=== PATIENT | male | born 1980 | race Two or more races ===

== ENCOUNTER 2017-08-15 08:23 | Emergency (ER) | payer SELFPAY ==
[~2017-08-15] VITALS: Ht 165.1 cm; Wt 77.1 kg
[2017-08-15] MEDS ORDERED: Sodium Chloride 500ML 500 ML IV ONE (08:24)
[2017-08-15] MEDS ORDERED: levETIRAcetam 500mg/NS100ml 100 ML IVPB ONE (08:30)
[2017-08-15] MEDS ORDERED: LORazepam Inj 2mg/ml 1ml IV ONE (08:30)
[2017-08-15 08:37] VITALS: BP 136/86
[2017-08-15 08:50] LABS: HEMOGLOBIN 15.9 G/DL (14.2-18.0); MEAN CORPUSCULAR VOLUME 93 FL (80-99); PLATELET COUNT 404 K/UL (150-450); RED BLOOD COUNT 5.06 M/UL (4.70-6.10); RED CELL DISTRIBUTION WIDTH 12.2 % (11.6-14.8); WHITE BLOOD COUNT 18.6 K/UL (4.8-10.8)
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
[2017-08-15 09:00] LABS: ANION GAP 15 mmol/L (5-15); BLOOD UREA NITROGEN 11 mg/dL (7-18); CARBON DIOXIDE 21 MMOL/L (21-32); CHLORIDE 101 MMOL/L (98-107); CREATININE 1.5 MG/DL (0.55-1.30); POTASSIUM 4.3 MMOL/L (3.5-5.1); SODIUM 136 MMOL/L (136-145)
[2017-08-15 09:06] LABS: ALANINE AMINOTRANSFERASE 43 U/L (12-78); ALBUMIN 3.7 G/DL (3.4-5.0); ALBUMIN/GLOBULIN RATIO 0.8 (1.0-2.7); ALKALINE PHOSPHATASE 125 U/L (46-116); ASPARTATE AMINO TRANSFERASE 26 U/L (15-37); BILIRUBIN,TOTAL 0.5 MG/DL (0.2-1.0); CREATINE KINASE 517 U/L (26-308)
--- NOTE | 2017-08-15 09:12 | Diagnostic Imaging Report ---
Indications: Seizure Technique: Spiral acquisitions obtained through the brain. Angled axial and coronal 5 x 5 mm slices were reconstructed. Total dose length product 1383.12 mGycm. CTDI vol(s) 70.38 mGy. Dose reduction achieved using automated exposure control Comparison: None. Findings: There is a right frontotemporal parietal craniotomy/craniectomy defect. There is underlying parasagittal frontal encephalomalacia. This results in 2. Dilatation of the frontal horn right lateral ventricle. No acute intracranial hemorrhage or edema. No mass effect or midline shift. Otherwise normal llanes-white differentiation. There is minimal sphenoid sinus disease. The mastoids are clear. The visualized portions of the orbits and optic globes are intact. Impression: Evidence of prior right convexity craniotomy/craniectomy. 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 Correlate with clinical/surgical history No acute intracranial bleed or mass effect Consider contrast MRI for more sensitive and specific evaluation of stated clinical history of seizure disorder, as clinically indicated The CT scanner at [facility] is accredited by the [employer] and the scans are performed using protocols designed to limit radiation exposure to as low as reasonably achievable to attain images of sufficient resolution adequate for diagnostic evaluation.
[2017-08-15 10:09] VITALS: BP 119/85
[2017-08-15] MEDS ORDERED: KEPPRA500 MG ORAL (10:44)
[2017-08-15 11:29] LABS: APPEARANCE,URINE CLEAR; BILIRUBIN, URINE NEGATIVE (NEGATIVE); COLOR,URINE PALE YELLOW; GLUCOSE, URINE (UA) NEGATIVE (NEGATIVE); KETONES,URINE 2+ (NEGATIVE); LEUKOCYTE ESTERASE ,URINE NEGATIVE (NEGATIVE); NITRITE,URINE NEGATIVE (NEGATIVE); PH,URINE 5 (4.5-8.0); PROTEIN,URINE 2+ (NEGATIVE); UROBILINOGEN,URINE NORMAL MG/DL (0.0-1.0)
--- NOTE | 2017-08-15 12:11 | Diagnostic Imaging Report ---
Indication: Chest pain Technique: One view of the chest Comparison: none Findings: Lungs and pleural spaces are clear. The heart size is normal Impression: Negative
[2017-08-15 13:12] VITALS: BP 106/51
[2017-08-15 15:59] VITALS: BP 130/80
--- NOTE | 2017-08-16 17:57 | Cardiology Report ---
APPROVED REPORT EKG Measurement Heart [id number] Normal sinus rhythm Normal ECG
== END 2017-08-15 16:02 | disposition home or self-care (01) ==
LOC: EDBD 08:23 → EMR 08:51
DX: G40.409 Other generalized epilepsy and epileptic syndromes, not intractable, without status epilepticus (principal); F19.10 Other psychoactive substance abuse, uncomplicated; Z98.890 Other specified postprocedural states; R07.9 Chest pain, unspecified
CPT/HCPCS: 36415; 70450; 71045; 80053; 80307; 81003; 82550; 84484; 85007; 85025; 93005; 96374; 96375; 99284; G0480; J1953; J7040; 80329